=== PATIENT | female | born 2000 | race Caucasian/White ===

== ENCOUNTER 2021-06-13 09:33 | Emergency (ER) | payer BC ==
[~2021-06-13] VITALS: Ht 162.6 cm; Wt 111.4 kg
[2021-06-13] MEDS ORDERED: NS 1,000 ML IV SCH (11:15)
[2021-06-13] MEDS ORDERED: ONDANSETRON 4MG/2ML VIAL IV ONE (11:15)
[2021-06-13] MEDS ORDERED: MORPHINE 4 MG/ML 1ML VIAL/SYRINGE (J2270) IV ONE (11:15)
[2021-06-13 11:55] LABS: BASO % 0.4 % (0.0-1.0); EOS % 0.1 % (0.0-3.0); HEMATOCRIT 42.6 % (36.0-47.0); HEMOGLOBIN 14.3 g/dl (12.0-15.5); LYMPH # 2.7 10^3/uL (1.5-5.0); MEAN CORPUSCULAR HEMOGLOBIN 29.6 pg (27.0-33.0); MEAN CORPUSCULAR HGB CONC 33.6 g/dl (32.0-36.5); MEAN CORPUSCULAR VOLUME 88.2 fl (80.0-96.0); MONO # 0.8 10^3/uL (0.0-0.8); MONO % 7.1 % (2.0-8.0); NEUTROPHILS # 7.6 10^3/uL (1.5-8.5); PLATELET COUNT, AUTOMATED 267 10^3/uL (150-450); RED BLOOD COUNT 4.83 10^6/uL (4.00-5.40); WHITE BLOOD COUNT 11.1 10^3/uL (4.0-10.0)
[2021-06-13] MEDS: GASTROGRAFIN SOLUTION 30ML PO SCH ×2 (12:00→12:30)
[2021-06-13] MEDS ORDERED: diphenhydrAMINE 50MG CAP PO ONE (12:10)
[2021-06-13 12:17] LABS: HCG, SERUM QUALITATIVE NEGATIVE (NEGATIVE)
[2021-06-13 12:18] LABS: ALBUMIN 3.3 GM/DL (3.2-5.2); ALT/SGPT 101 U/L (12-78); BILIRUBIN,DIRECT 0.5 MG/DL (0.0-0.2); BILIRUBIN,TOTAL 1.1 MG/DL (0.2-1.0); BLOOD UREA NITROGEN 8 MG/DL (7-18); CALCIUM LEVEL 8.7 MG/DL (8.5-10.1); CARBON DIOXIDE LEVEL 32 MEQ/L (21-32); CHLORIDE LEVEL 109 MEQ/L (98-107); CREATININE FOR GFR 1.14 MG/DL (0.55-1.30); GLUCOSE, FASTING 91 MG/DL (70-100); LIPASE 115 U/L (73-393); POTASSIUM SERUM 4.5 MEQ/L (3.5-5.1); SODIUM LEVEL 144 MEQ/L (136-145); TOTAL PROTEIN 6.4 GM/DL (6.4-8.2)
[2021-06-13] MEDS ORDERED: ISOVUE-370 76% 100ML VIAL As Ordered ONE (13:40)
--- NOTE | 2021-06-13 14:26 | REP ---
INDICATION: gen pain POD#2 s/p lap flower COMPARISON: None. TECHNIQUE: CT Scan of the abdomen and pelvis was performed with intravenous administration of 100 cc of Isovue 370, and oral contrast. Sagittal and coronal reconstruction images are performed. FINDINGS: Lung bases: Unremarkable. Liver: Normal Gallbladder: Postop day 2 laparoscopic cholecystectomy. There is no fluid to collection in the gallbladder fossa. Spleen: Normal. Adrenals: Normal. Pancreas: Normal. Kidneys: Normal. Small and large bowel: Unremarkable. There is a small amount of air, edema and fluid in the umbilical soft tissues, and a tiny focus of air in the anterior mesentery in the midline, status post laparoscopic cholecystectomy. Free fluid: There is trace free fluid in the pelvis. There is no evidence of bile leak. Abdominal aorta: No aneurysm or dissection. Adenopathy: None. Appendix: Not inflamed. Osseous structures: There is an exostosis of the posterior left pubis. This measures approximately 2 cm in diameter.. Pelvis: No mass. IMPRESSION: Status post laparoscopic cholecystectomy. Small amount of air, edema and fluid in the umbilical soft tissues. Tiny focus of expected postsurgical air in the anterior mesentery in the midline. No evidence of fluid collection or bile leak. There is only trace free fluid in the pelvis. <Electronically signed by Luis Manuel Urrutia > 06/13/21 [id number]
[2021-06-13] MEDS ORDERED: AUGMENTIN 875 MG TAB PO ONE (15:25)
[2021-06-13] MEDS ORDERED: AUGM875T28 PO (15:56)
[2021-06-13 16:30] VITALS: BP 112/51
== END 2021-06-13 17:03 | disposition home or self-care (01) ==
LOC: M ED 09:33 → EDBD 09:33 → M ED 17:03
DX: T81.49XA Infection following a procedure, other surgical site, initial encounter (principal)
CPT/HCPCS: 36415; 74177; 80048; 80076; 83690; 84703; 85025; 93041; 96361; 96374; 96375; 99285; J2270; J2405; Q9963; Q9967

== ENCOUNTER → 2022-06-20 | Outpatient (REF) | payer BC ==
[~2022-06-20] MED LIST: AUGM875T28 PO
[2022-06-20 16:17] LABS: HIV 1&2 SCREEN CENTAUR NEGATIVE (NEGATIVE)
== END ==
LOC: M LAB REF 12:16
PROVIDERS: ATTEND Nurse Practitioner Family
DX: Z11.3 Encounter for screening for infections with a predominantly sexual mode of transmission (principal)

== ENCOUNTER → 2022-07-02 | Outpatient (REF) | payer BC ==
[2022-07-03 19:46] LABS: GC DNA AMPLIFICATION NEGATIVE (NEGATIVE)
== END ==
LOC: M LAB REF 17:24
PROVIDERS: ATTEND Nurse Practitioner Family
DX: Z72.51 High risk heterosexual behavior (principal)

== ENCOUNTER → 2022-07-05 | Outpatient (CLI) | payer BC | LOC: M RAD 10:08 | PROVIDERS: ATTEND Nurse Practitioner Family | DX: M25.551 Pain in right hip (principal) ==

== ENCOUNTER 2022-07-22 07:05 | Emergency (ER) | payer BC ==
[~2022-07-22] VITALS: Ht 165.1 cm; Wt 102.1 kg
[2022-07-22] MEDS ORDERED: COMBIVENT RESPIMAT 100-20MCG INHALER 4GM INH SCH (07:55)
[2022-07-22] MEDS ORDERED: methylPREDNISolone 125MG 2ML VIAL IV ONE (07:55)
[2022-07-22 08:08] VITALS: O2SAT 99
[2022-07-22 08:57] LABS: BASO % 0.5 % (0.0-1.0); EOS % 0.2 % (0.0-3.0); HEMATOCRIT 47.7 % (36.0-47.0); HEMOGLOBIN 16.6 g/dl (12.0-15.5); LYMPH # 0.9 10^3/uL (1.5-5.0); LYMPH % 10.8 % (24.0-44.0); MEAN CORPUSCULAR HEMOGLOBIN 29.6 pg (27.0-33.0); MEAN CORPUSCULAR HGB CONC 34.8 g/dl (32.0-36.5); MEAN CORPUSCULAR VOLUME 85.2 fl (80.0-96.0); MONO # 0.8 10^3/uL (0.0-0.8); MONO % 9.2 % (2.0-8.0); NEUTROPHILS # 6.5 10^3/uL (1.5-8.5); NEUTROPHILS % 78.8 % (36.0-66.0); PLATELET COUNT, AUTOMATED 249 10^3/uL (150-450); WHITE BLOOD COUNT 8.3 10^3/uL (4.0-10.0)
[2022-07-22 09:15] LABS: INR 0.94; PROTHROMBIN TIME 12.8 SECONDS (12.5-14.5)
[2022-07-22 09:19] LABS: CHLORIDE LEVEL 101 MMOL/L (98-107); SODIUM LEVEL 137 MMOL/L (136-145)
[2022-07-22 09:20] LABS: ALBUMIN 4.2 G/DL (3.2-5.2); CARBON DIOXIDE LEVEL 25 MMOL/L (20-31)
[2022-07-22 09:23] LABS: HCG, SERUM QUALITATIVE NEGATIVE (NEGATIVE)
[2022-07-22 09:25] LABS: BLOOD UREA NITROGEN 9 MG/DL (9-23); CALCIUM LEVEL 9.3 MG/DL (8.5-10.1); GLUCOSE, FASTING 104 MG/DL (60-100); LIPASE 30 U/L (12-53)
[2022-07-22 09:26] LABS: ALKALINE PHOSPHATASE 123 U/L (46-116)
[2022-07-22 09:26] LABS: CK-MB VALUE MASS < 1.0 NG/ML (<3.6)
[2022-07-22 09:27] LABS: ALT/SGPT 70 U/L (7.0-40); AST/SGOT 30 U/L (<34); BILIRUBIN,TOTAL 1.5 MG/DL (0.3-1.2); CK-MB VALUE MASS < 1.0 NG/ML (<3.6)
[2022-07-22 09:28] LABS: BILIRUBIN,DIRECT 0.5 MG/DL (<0.4); CREATININE FOR GFR 0.82 MG/DL (0.55-1.30)
[2022-07-22] MEDS ORDERED: TEST200I14 (09:28)
[2022-07-22] MEDS ORDERED: OMEP40CA5 (09:28)
[2022-07-22] MEDS ORDERED: FLUO40CA (09:28)
[2022-07-22 09:29] LABS: CPK CREATINE PHOSPHOKINASE 98 U/L (34-145); MB/CK RELATIVE INDEX 1.02 (< OR =4)
[2022-07-22 09:37] LABS: POTASSIUM SERUM 4.4 MMOL/L (3.5-5.1)
[2022-07-22] MEDS ORDERED: ISOVUE-370 76% 100ML VIAL As Ordered ONE (09:37)
[2022-07-22 09:38] LABS: CPK CREATINE PHOSPHOKINASE 95 U/L (34-145); MB/CK RELATIVE INDEX 1.05 (< OR =4)
[2022-07-22 09:45] LABS: RSV AMPLIFICATION NEGATIVE (NEGATIVE)
[2022-07-22] MEDS ORDERED: ONDA4TAB6 PO (10:50)
[2022-07-22] MEDS ORDERED: OSEL75CA PO (10:50)
[2022-07-22 11:00] VITALS: BP 134/55
== END 2022-07-22 11:13 | disposition home or self-care (01) ==
LOC: M ED 07:05
DX: J09.X2 Influenza due to identified novel influenza A virus with other respiratory manifestations (principal); R06.00 Dyspnea, unspecified; R00.0 Tachycardia, unspecified; F17.200 Nicotine dependence, unspecified, uncomplicated; Z79.899 Other long term (current) drug therapy
CPT/HCPCS: 71045; 71275; 74177; 80047; 80048; 80076; 82550; 82553; 83605; 83690; 84703; 85025; 85610; 86850; 86900; 86901; 87040; 87631; 93005; 94640; 96374; 99284; J2930

== ENCOUNTER → 2022-08-11 | Outpatient (REF) | payer BC ==
[~2022-08-11] MED LIST changes: +FLUO40CA; +OMEP40CA5; +ONDA4TAB6 PO; +OSEL75CA PO; +TEST200I14
[2022-08-11 13:51] LABS: APPEARANCE, URINE MANUAL HAZY (CLEAR); COLOR, URINE MANUAL YELLOW (YELLOW)
[2022-08-11 13:52] LABS: BILIRUBIN, URINE MANUAL NEGATIVE (NEGATIVE); GLUCOSE, URINE (UA) MANUAL NEGATIVE (NEGATIVE); KETONE, URINE MANUAL NEGATIVE (NEGATIVE); LEUKOCYTE ESTERASE, URINE MAN POSITIVE (NEGATIVE); NITRITE, URINE MANUAL POSITIVE (NEGATIVE); PH,URINE MAN 7.5 UNITS (5.0 - 7.0); PROTEIN, URINE MANUAL TRACE mg/dL (NEGATIVE); SPECIFIC GRAVITY,URINE MANUAL 1.015 (1.002-1.035); UROBILINOGEN, URINE MANUAL NORMAL (NORMAL)
[2022-08-11 13:53] LABS: BLOOD URINE MANUAL POSITIVE (NEGATIVE)
[2022-08-11 14:08] LABS: BACTERIA, URINE NONE SEEN; HYALINE CAST, URINE NONE SEEN /lpf (0-1); RBC, URINE NONE SEEN /hpf (0-3); SQUAMOUS EPITHELIAL CELL URINE SMALL AMOUNT /hpf (SMALL AMT)
== END ==
LOC: M LAB REF 13:38
PROVIDERS: ATTEND Physician Assistant Medical
DX: N39.0 Urinary tract infection, site not specified (principal)

== ENCOUNTER 2022-10-01 16:09 | Emergency (ER) | payer BC ==
[~2022-10-01] VITALS: Ht 165.1 cm; Wt 95.5 kg
[~2022-10-01 16:09] MED LIST changes: -TEST200I14; +TEST200I14 SQ
[2022-10-01] MEDS ORDERED: ARIP1TAB4 (16:26)
[2022-10-01] MEDS ORDERED: KETOROLAC 60MG 2ML VIAL IM ONE (17:45)
[2022-10-01 18:07] LABS: BASO % 0.4 % (0.0-1.0); EOS # 0.1 10^3/uL (0.0-0.5); EOS % 0.8 % (0.0-3.0); HEMATOCRIT 45.9 % (36.0-47.0); HEMOGLOBIN 15.6 g/dl (12.0-15.5); LYMPH # 3.5 10^3/uL (1.5-5.0); LYMPH % 43.7 % (24.0-44.0); MEAN CORPUSCULAR HEMOGLOBIN 29.1 pg (27.0-33.0); MEAN CORPUSCULAR VOLUME 85.5 fl (80.0-96.0); MONO # 0.5 10^3/uL (0.0-0.8); MONO % 6.3 % (2.0-8.0); NEUTROPHILS # 3.9 10^3/uL (1.5-8.5); NEUTROPHILS % 48.7 % (36.0-66.0); PLATELET COUNT, AUTOMATED 277 10^3/uL (150-450); RED BLOOD COUNT 5.37 10^6/uL (4.00-5.40); WHITE BLOOD COUNT 7.9 10^3/uL (4.0-10.0)
[2022-10-01 18:38] LABS: HCG, SERUM QUALITATIVE NEGATIVE (NEGATIVE)
[2022-10-01] MEDS ORDERED: IBUP-1022 PO (18:49)
[2022-10-01 19:01] VITALS: BP 139/61
== END 2022-10-01 19:04 | disposition home or self-care (01) ==
LOC: M ED 16:09
DX: N93.9 Abnormal uterine and vaginal bleeding, unspecified (principal); K21.9 Gastro-esophageal reflux disease without esophagitis; Z79.83 Long term (current) use of bisphosphonates; Z79.899 Other long term (current) drug therapy
CPT/HCPCS: 84703; 85025; 96372; 99283; J1885

== ENCOUNTER → 2022-10-22 | Outpatient (CLI) | payer BC ==
[~2022-10-22] MED LIST changes: +ARIP1TAB4; +IBUP-1022 PO
[2022-10-22 14:08] LABS: BASO % 0.3 % (0.0-1.0); EOS # 0.1 10^3/uL (0.0-0.5); EOS % 0.4 % (0.0-3.0); HEMATOCRIT 44.6 % (36.0-47.0); HEMOGLOBIN 14.9 g/dl (12.0-15.5); LYMPH # 3.4 10^3/uL (1.5-5.0); LYMPH % 22.1 % (24.0-44.0); MEAN CORPUSCULAR HEMOGLOBIN 29.9 pg (27.0-33.0); MEAN CORPUSCULAR HGB CONC 33.4 g/dl (32.0-36.5); MEAN CORPUSCULAR VOLUME 89.4 fl (80.0-96.0); MONO # 0.9 10^3/uL (0.0-0.8); MONO % 5.5 % (2.0-8.0); NEUTROPHILS # 10.9 10^3/uL (1.5-8.5); NEUTROPHILS % 71.2 % (36.0-66.0); PLATELET COUNT, AUTOMATED 307 10^3/uL (150-450); RED BLOOD COUNT 4.99 10^6/uL (4.00-5.40); WHITE BLOOD COUNT 15.4 10^3/uL (4.0-10.0)
[2022-10-22 14:19] LABS: HEMOGLOBIN A1c 4.8 % (4.0-6.0)
[2022-10-22 14:23] LABS: IRON (FE) 39 UG/DL (50-170)
[2022-10-22 14:24] LABS: PERCENT SATURATION 20.4 % (13.2-45.0); TOTAL IRON BINDING CAPACITY 191 UG/DL (250-425)
[2022-10-22 14:43] LABS: BLOOD UREA NITROGEN 10 MG/DL (9-23); CALCIUM LEVEL 9.7 MG/DL (8.5-10.1); CARBON DIOXIDE LEVEL 29 MMOL/L (20-31); CHLORIDE LEVEL 106 MMOL/L (98-107); CHOLESTEROL LEVEL 203 MG/DL (<200); CREATININE FOR GFR 0.82 MG/DL (0.55-1.30); FERRITIN 39.9 NG/ML (7.3-270.7); GLUCOSE, FASTING 79 MG/DL (60-100); HDL CHOLESTEROL 47.1 MG/DL (>40); LDL CHOLESTEROL 128.9 MG/DL (<100); NON-HDL-C 156 MG/DL; POTASSIUM SERUM 4.2 MMOL/L (3.5-5.1); SODIUM LEVEL 141 MMOL/L (136-145); THYROID STIMULATING HORMONE 1.081 uIU/ML (0.48-4.17); TOTAL 25(OH) VITAMIN D 12.3 NG/ML (20.0-100.0); TRIGLYCERIDES LEVEL 135 MG/DL (<150)
== END ==
LOC: M PLALAB 09:03
PROVIDERS: ATTEND Nurse Practitioner Family
DX: E61.1 Iron deficiency (principal); E66.9 Obesity, unspecified; E55.9 Vitamin D deficiency, unspecified

== ENCOUNTER → 2022-11-01 | Outpatient (REF) | payer BC ==
[2022-11-01 21:02] LABS: APPEARANCE, URINE TURBID (CLEAR); BACTERIA, URINE AUTO NEGATIVE (NEGATIVE); BILIRUBIN, URINE AUTO NEGATIVE (NEGATIVE); BLOOD, URINE BLOOD 1+ (NEGATIVE); COLOR, URINE YELLOW (YELLOW); GLUCOSE, URINE (UA) AUTO NEGATIVE (NEGATIVE); KETONE, URINE AUTO NEGATIVE (NEGATIVE); LEUKOCYTE ESTERASE, URINE AUTO 1+ (NEGATIVE); NITRITE, URINE AUTO NEGATIVE (NEGATIVE); PROTEIN, URINE AUTO 1+ mg/dL (NEGATIVE); RBC, URINE AUTO 14 /HPF (0-3); SPECIFIC GRAVITY URINE AUTO 1.019 (1.002-1.035); SQUAMOUS EPITHELIAL CELL UR AU 3 /HPF (0-6); UROBILINOGEN, URINE AUTO 0.2 mg/dL (0.0-2.0); WBC, URINE AUTO 33 /HPF (0-3)
[2022-11-01 21:03] LABS: AMORPHOUS SEDIMENT LARGE (NEGATIVE)
== END ==
LOC: M LAB REF 20:50
PROVIDERS: ATTEND Physician Assistant Medical
DX: N39.0 Urinary tract infection, site not specified (principal)

== ENCOUNTER 2022-11-02 19:30 | Emergency (ER) | payer BC ==
[~2022-11-02] VITALS: Ht 165.1 cm; Wt 98.2 kg
[2022-11-02 21:23] VITALS: BP 129/60
== END 2022-11-02 21:24 | disposition home or self-care (01) ==
LOC: M ED 19:30
DX: M79.641 Pain in right hand (principal); W22.09XA Striking against other stationary object, initial encounter; K21.9 Gastro-esophageal reflux disease without esophagitis; F41.9 Anxiety disorder, unspecified; Z79.1 Long term (current) use of non-steroidal anti-inflammatories (NSAID); Z79.83 Long term (current) use of bisphosphonates; Z79.899 Other long term (current) drug therapy